=== PATIENT | male | born 1995 | race Caucasian/White ===

== ENCOUNTER 2018-11-20 17:28 | Emergency (ER) | payer BC ==
[~2018-11-20] VITALS: Ht 182.9 cm; Wt 95.0 kg
[2018-11-20 17:38] VITALS: BP 132/70
== END 2018-11-20 17:41 | disposition home or self-care (01) ==
LOC: ER 17:29
DX: M25.512 Pain in left shoulder (principal); X50.9XXA Other and unspecified overexertion or strenuous movements or postures, initial encounter; Y93.89 Activity, other specified; Y92.89 Other specified places as the place of occurrence of the external cause; Y99.8 Other external cause status
CPT/HCPCS: 99281